=== PATIENT | male | born 1975 | race African-American/Black ===

== ENCOUNTER 2019-07-29 21:16 | Emergency (ER) | payer OTHER ==
[~2019-07-29 21:16] MED LIST: FENTANYL CITR 100 MCG/2 ML ONE
[2019-07-29] MEDS ORDERED: ONDANSETRON 4 MG/2 ML VIAL ONE (21:38)
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
--- NOTE | 2019-07-29 22:10 | RAD REPORT ---
EXAM DESCRIPTION: RAD - Forearm Right - 07/29/2019 10:04 pm CLINICAL HISTORY: PAIN COMPARISON: No comparisons FINDINGS: No acute fracture or dislocation seen. Large olecranon spur.
--- NOTE | 2019-07-29 22:12 | RAD REPORT ---
EXAM DESCRIPTION: RAD - Shoulder Left 2 View - 07/29/2019 10:04 pm CLINICAL HISTORY: PAIN COMPARISON: No comparisons FINDINGS: Mild degenerative changes are present. No fracture or dislocation evident.
--- NOTE | 2019-07-29 22:13 | RAD REPORT ---
EXAM DESCRIPTION: RAD - Forearm Left - 07/29/2019 10:04 pm CLINICAL HISTORY: PAIN COMPARISON: No comparisons FINDINGS: Intraarticular fracture of the distal radius is seen with mild displacement. No dislocatio n.
[2019-07-29] MEDS ORDERED: FENTANYL CITR 100 MCG/2 ML ONE (22:25)
[2019-07-29 22:39] LABS: Absolute Lymphocytes (CBC) 2.5 K/uL (0.7-4.9); Basophils % 0.1 % (0-1.3); Hematocrit 42.8 % (39.6-49.0); MPV 7.5 fL (7.6-11.3); RBC Red Blood Cell Count 4.32 M/uL (4.33-5.43)
[2019-07-29 22:47] LABS: Potassium 3.5 mmol/L (3.5-5.1)
[2019-07-29] MEDS ORDERED: TETANUS & DIPHTHERIA TOX,ADULT 0.5 ML VIAL ONE (22:47)
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
[2019-07-30] MEDS ORDERED: HYDROCODONE/APAP 10/325 TAB ONE (00:16)
[2019-07-30 01:28] VITALS: BP 136/92; O2SAT 98
== END 2019-07-30 00:31 | disposition home or self-care (01) ==
LOC: ER 21:16
PROC: 2W3DX1Z Immobilization of Left Lower Arm using Splint (ICD-10-PCS; principal; 2019-07-30)
DX: S52.532A Colles' fracture of left radius, initial encounter for closed fracture (principal); V29.9XXA Motorcycle rider (driver) (passenger) injured in unspecified traffic accident, initial encounter; E11.9 Type 2 diabetes mellitus without complications; Z23 Encounter for immunization; Z79.4 Long term (current) use of insulin; Z79.82 Long term (current) use of aspirin; F17.210 Nicotine dependence, cigarettes, uncomplicated
CPT/HCPCS: 85025; 80048; 36415; 86900; 86850; 86901; 70450; 72125; 71260; 74177; 73090 ×2; 73030; 90471; 90714; 96375; 96374; 99285; 29125; Q9967; J3010 ×2; J2405